=== PATIENT | female | born 1945 | race Caucasian/White ===

== ENCOUNTER → 2016-12-05 16:39 | Outpatient (CLI) | payer MEDICARE, OTHER ==
[2013-05-14 06:56] VITALS: BMI 40.6
[~2016-12-05 16:39] MED LIST: ASPIRIN EC81 MG PO; CALTRATE-600600 MG PO; COLACE100 MG PO; MACRODANTIN100 MG PO; MILK OF MAGNESI30 ML PO; MIRALAX17 GM PO; NORVASC10 MG PO; SLEEP AID25 M1 PO; ULTRACET TABLET1 TAB PO; ZESTORETIC 20/21 TAB PO
== END | disposition home or self-care (01) ==
LOC: D.MAMMO 11:30
DX: Z12.31 Encounter for screening mammogram for malignant neoplasm of breast (principal)

== ENCOUNTER → 2017-12-08 13:17 | Outpatient (CLI) | payer MEDICARE, OTHER ==
[2013-05-14 06:56] VITALS: BMI 40.6
== END | disposition home or self-care (01) ==
LOC: D.MAMMO 13:17
DX: Z12.31 Encounter for screening mammogram for malignant neoplasm of breast (principal)

== ENCOUNTER → 2018-12-08 12:30 | Outpatient (CLI) | payer MEDICARE, OTHER | END | disposition home or self-care (01) | LOC: D.MAMMO 12:30 | DX: Z12.31 Encounter for screening mammogram for malignant neoplasm of breast (principal) ==